=== PATIENT | female | born 1960 | race Caucasian/White ===

== ENCOUNTER 2021-01-06 10:05 | Outpatient (CLI) | payer BC, SELFPAY ==
--- NOTE | ~2021-01-06 | CT_ITS ---
EXAMINATION: CT brain wo con DATE: 01/06/2021 10:23 INDICATION: Headaches. TECHNIQUE: Computed tomography (CT) of the head was performed without intravenous contrast. The mA wa s adjusted according to patient size. Iterative reconstruction technique was employed. The dose-lengt h product was 605.33 mGy-cm. COMPARISON: None FINDINGS: There is no intracranial hemorrhage, acute infarction, or abnormal intracranial mass lesion . The ventricles are normal in size. The orbits are normal. The paranasal sinuses are clear. The mast oid air cells are normal. IMPRESSION: 1. Normal brain. Reviewed, dictated and finalized at location A. IMPRESSION: 1. Normal brain.
== END 2021-01-06 10:06 | disposition home or self-care (01) ==
PROVIDERS: PCP Family Medicine; Visit Provider Physician Assistant
DX: R41.9 Unspecified symptoms and signs involving cognitive functions and awareness (principal); R29.90 Unspecified symptoms and signs involving the nervous system
CPT/HCPCS: 70450

== ENCOUNTER → 2021-03-28 14:28 | Outpatient (CLI) | payer BC, SELFPAY ==
--- NOTE | ~2021-03-28 | XR_ITS ---
EXAMINATION: XR cervical spine 4-5V DATE: 03/28/2021 14:57 INDICATION: Cervical radiculopathy. Neck pain. TECHNIQUE: 4 views of cervical spine were obtained. COMPARISON: None. FINDINGS: There is 4 degrees dextrocurvature of cervical spine. Vertebral body heights are normal. Th ere is moderately decreased disc height at C5-C6. There is multilevel mild facet joint osteoarthritis . There is mild central canal stenosis at C5-C6. No prevertebral soft tissue swelling. IMPRESSION: 1. Moderate spondylosis at C5-C6. Reviewed, dictated and finalized at location A.
--- NOTE | ~2021-03-28 | XR_ITS ---
EXAMINATION: XR lumbar spine 2-3V DATE: 03/28/2021 14:57 INDICATION: Low back pain. TECHNIQUE: 3 views of lumbar spine were obtained. COMPARISON: None. FINDINGS: There is 11 degrees levoscoliosis of lumbar spine. Vertebral body heights are normal. There are changes of posterior fusion procedure at L4-L5 with pedicle screws. There is mildly decreased di sc height at L2-L3, moderately decreased disc height at L3-L4, and mildly decreased disc height at L4 -L5. There are staple lines in the areas of the stomach. There is severe facet joint osteoarthritis i n lower lumbar spine. IMPRESSION: 1. Moderate lumbar spondylosis. 2. Posterior fusion procedure at L4-L5. 3. Lumbar levoscoliosis. Reviewed, dictated and finalized at location A.
== END ==
PROVIDERS: PCP Family Medicine; Visit Provider Pain Medicine Interventional Pain Medicine
DX: M54.12 Radiculopathy, cervical region (principal); M47.16 Other spondylosis with myelopathy, lumbar region; M47.812 Spondylosis without myelopathy or radiculopathy, cervical region; M47.816 Spondylosis without myelopathy or radiculopathy, lumbar region; Z98.1 Arthrodesis status; M41.86 Other forms of scoliosis, lumbar region
CPT/HCPCS: 72050; 72100

== ENCOUNTER → 2021-04-14 09:05 | Outpatient (CLI) | payer BC, SELFPAY ==
--- NOTE | ~2021-04-14 | XR_ITS ---
XR hip BI 2V w AP pelvis DATE: 04/14/2021 09:33 INDICATION: Bilateral hip pain TECHNIQUE: AP pelvis. AP and lateral views of each hip COMPARISON: None FINDINGS: Status post L4 laminectomy and bilateral pedicle screws and rods at L4-5. Moderate diffuse osteopenia. No pelvic fracture or bone destruction. The pubic symphysis and sacroiliac joints are intact. Mild bilateral hip osteoarthritis. No fracture, dislocation, avascular necrosis or bone destruction o f either hip is detected. IMPRESSION: Status post L4 laminectomy and bilateral posterior surgical spinal fusion at L4-5 Moderate osteopenia Mild osteoarthritis at the hip joints Reviewed, dictated and finalized at location B.
== END ==
PROVIDERS: PCP Family Medicine; Visit Provider Family Medicine
DX: M25.551 Pain in right hip (principal); M25.552 Pain in left hip; Z98.1 Arthrodesis status; M85.88 Other specified disorders of bone density and structure, other site; M16.0 Bilateral primary osteoarthritis of hip
CPT/HCPCS: 73521

== ENCOUNTER 2021-06-17 08:30 | Outpatient (RCR) | payer BC, SELFPAY ==
--- NOTE | 2021-05-28 09:37 | PTOPEVAL ---
PHYSICAL THERAPY EVALUATION AND PLAN OF CARE Thank you for referring Karin Donovan to [facility].? The patient is scheduled to be seen for therapy?2x/week for 4 weeks. Please review, sign, date and return this plan of care ARIANNA. I agree with and certify that the following plan of care is medically necessary. Referring Physician Date Attending Provider: Donny Paniagua MD Evaluation Outpatient Past Medical History Musculoskeletal History Hx Other Musculoskeletal Disorders Yes: left femur ORIF Diagnosis bilateral hip and back pain Onset 2019 Subjective Information Karin is here today with Query Text:As Reported By Patient/ back and hip pain. She did Family have L4-5 spinal fusion in 2019 and she states that it went well. Reports shooting pain in her back and down to her right side and hips the moment she steps down in the morning. can only stand for 10 -15minutes and can sit for maybe a little longer. Self Report Pain Assessment Bilateral Back Reported Pain Level 7 Pain Description Aching,Shooting Pain Frequency Chronic,Continuous Pain Score Pain Score 7: Self Report Interventions Used Interventions Used By Clinicians Exercise Pain Relief Interventions Used By Medication Patient Cervical and Lumbar ROM Lumbar ROM Lumbar Flexion Active Knee Query Text:Hands to: Lumbar Extension (0-40) 5 Query Text:Active in Degrees Lateral Rotation Right (0-45) 5 Query Text:Active in Degrees Lateral Rotation Left (0-45) 5 Query Text:Active in Degrees Lower Extremity Range of Motion General Lower Extremity Range of Motion Reason Not Measured WFL/Left,WFL/Right Gross Lower Extremity Range of Motion hip internal rotation is Comments limited bilaterally Cervical and Lumbar Muscle Testing Lumbar Strength Upper Abdominal Strength 3-Fair- Lower Abdominal Strength 3-Fair- Lower Extremity Muscle Strength Testing Hip Strength Bilateral Hip Flexion Strength 3+ Fair + Hip Extension Strength 3 Fair Hip Abduction Strength 3 Fair Knee Strength Bilateral Knee Flexion Strength 3+ Fair + Knee Extension Strength 4- Good - Muscle Length Testing Muscle Length Testing Piriformis w/Hip Flexion >90 Degrees (R) Moderate Tightness,(L) Severe Tightness Left Hamstring Length -30 Query Text:(90 - 90 Position) Right Hamstring Length -30 Query Text:(90 - 90 Position) Right
--- NOTE | 2021-06-17 09:13 | PTOPEVAL ---
PHYSICAL THERAPY DISCHARGE NOTE Thank you for referring Karin Donovan to [facility].? Please review, sign, date and return this plan of care ARIANNA. I agree with and certify that the following plan of care is medically necessary. Referring Physician Date Attending Provider: Donny Paniagua MD Discharge Diagnosis bilateral hip and back pain Onset 2018 Subjective Information Reports that she is stiff this Query Text:As Reported By Patient/ morning. States that therapy Family has been ok - states that each therapy session was ok, but by the time she got to the next session the pain was back to its normal. Self Report Pain Assessment Bilateral Back Reported Pain Level 6 Pain Description Aching,Shooting,Tightness Pain Frequency Chronic,Continuous Pain Score Pain Score 6: Self Report Interventions Used Interventions Used By Clinicians Exercise,Manual Therapy Techniques Pain Relief Interventions Used By Medication Patient Cervical and Lumbar ROM Lumbar ROM Lumbar Flexion Active Knee Query Text:Hands to: Lumbar Extension (0-40) 5 Query Text:Active in Degrees Lateral Rotation Right (0-45) 5 Query Text:Active in Degrees Lateral Rotation Left (0-45) 5 Query Text:Active in Degrees Lower Extremity Muscle Strength Testing Hip Strength Bilateral Hip Flexion Strength 4 Good Hip Extension Strength 3 Fair Hip Abduction Strength 3+ Fair + Knee Strength Bilateral Knee Flexion Strength 4 Good Knee Extension Strength 4 Good Muscle Length Testing Muscle Length Testing Piriformis w/Hip Flexion >90 Degrees (R) Moderate Tightness,(L) Severe Tightness Left Hamstring Length -30 Query Text:(90 - 90 Position) Right Hamstring Length -30 Query Text:(90 - 90 Position) Right Prone Knee Flexor Muscle Length ( 90 degrees) Left Prone Knee Flexor Muscle Length ( 80 degrees) General Exercise General Exercises Side Bilateral Exercise Type Active,Resistive,Stretching Exercise Description - Seated hamstring stretch Query Text:Record Sets, Reps, with nerve flossing Resistance, and Position - Seated piriformis stretch with cues for equal hip alignment -reviewed [facility] Manual Therapy Manual Therapy Side Bilateral Manual Ther
== END 2021-06-17 17:20 | disposition home or self-care (01) ==
LOC: ANHPT 08:30
PROVIDERS: PCP Family Medicine; Visit Provider Pain Medicine Interventional Pain Medicine
DX: M47.817 Spondylosis without myelopathy or radiculopathy, lumbosacral region (principal); M47.816 Spondylosis without myelopathy or radiculopathy, lumbar region; M47.26 Other spondylosis with radiculopathy, lumbar region; M47.27 Other spondylosis with radiculopathy, lumbosacral region; M51.16 Intervertebral disc disorders with radiculopathy, lumbar region; G89.4 Chronic pain syndrome; F41.1 Generalized anxiety disorder; F33.1 Major depressive disorder, recurrent, moderate
CPT/HCPCS: 97110; 97140; 97162

== ENCOUNTER 2021-07-04 13:55 | Outpatient (CLI) | payer BC, SELFPAY ==
--- NOTE | ~2021-07-04 | MR_ITS ---
EXAMINATION: MR lumbar spine wo [facility] EXAM DATE: 07/04/2021 14:38 INDICATION: Radiculopathy, lumbar region. Back pain. TECHNIQUE: Multi-sequential, multiplanar MR images of the lumbar spine were obtained without contrast . Sagittal T1, T2, T2 fat saturation images. Axial T2 weighted images. There is no prior study for comparison. FINDINGS: There is mild lumbar levoscoliosis. There is L4-5 posterior fusion with about 3 mm anteroli sthesis at this level. There is 3 mm retrolisthesis L3 on L4 with moderate disc disease. Mild to mode rate disc disease at the L1-2, L2-3 and L4-5 levels. The conus medullaris terminates at the L2 level and has normal signal intensity and morphology. Small hemangioma within L1. L3 and L4 laminectomies. Evaluation of cauda equina demonstrates nerve root clumping starting at the L3-4 level, probably chrome tanner carmencita arachnoiditis. Level by level evaluation: T12-L1: Disc does not extend beyond the endplate margin. Facet arthropathy: Mild. Neural foraminal stenosis: No stenosis. Central canal stenosis: No stenosis. L1-L2: Disc does not extend beyond the endplate margin. Facet arthropathy: Mild. Neural foraminal stenosis: No stenosis. Central canal stenosis: No stenosis. L2-L3: There is a mild diffuse disc bulge. Facet arthropathy: Mild. Neural foraminal stenosis: Mild to moderate bilateral. Central canal stenosis: Mild. L3-L4: There is a moderate diffuse disc bulge. Facet arthropathy: Moderate to severe right, moderate left. Neural foraminal stenosis: Severe right, moderate to severe left. Central canal stenosis: Posterior decompression. Some right lateral recess stenosis. L4-L5: There is a mild diffuse disc bulge. Facet arthropathy: Poorly visualized but could be partially fused. Neural foraminal stenosis: Mild bilateral. Central canal stenosis: Posterior decompression. L5-S1: There is a minimal diffuse disc bulge. Facet arthropathy: Mild to moderate. Neural foraminal stenosis: Mild bilateral. Central canal stenosis: No stenosis. IMPRESSION: 1. Lower lumbar nerve root clumping likely chronic arachnoiditis. 2. L3-4 grade 1 retrolisthesis, severe right, moderate to severe left neural foraminal stenosis. 3. Surgical changes including L4-5 posterior fusion, L3 and L4 laminectomies. Reviewed, dictated and finalized at location A. IMPRESSION: 1. Lower lumbar nerve root clumping likely chronic arachnoiditis. 2. L3-4 grade 1 retrolisthesis, severe right, moderate to severe left neural f oraminal stenosis. 3. Surgical changes including L4-5 posterior fusion, L3 and L4 laminectomies.
== END 2021-07-04 13:56 | disposition home or self-care (01) ==
LOC: ANHIMG 13:58
PROVIDERS: PCP Family Medicine; Visit Provider Pain Medicine Interventional Pain Medicine
DX: M54.17 Radiculopathy, lumbosacral region (principal); M43.16 Spondylolisthesis, lumbar region; M48.061 Spinal stenosis, lumbar region without neurogenic claudication; Z98.1 Arthrodesis status
CPT/HCPCS: 72148

== ENCOUNTER 2022-04-16 13:25 | Outpatient (CLI) | payer MEDICARE, SELFPAY ==
--- NOTE | ~2022-04-16 | XR_ITS ---
XR ankle RT min 3V DATE: 04/16/2022 13:54 INDICATION: Ankle injury TECHNIQUE: 4 views COMPARISON: None FINDINGS: Prominent plantar and very prominent posterior calcaneal enthesopathy. No erosive change or periostitis is noted. Mild lateral soft tissue swelling of the ankle. No fracture or dislocation of the ankle or disruption of the ankle mortise is detected. No periosteal reaction or bone destruction is detected. IMPRESSION: Mild lateral ankle soft tissue swelling; no fracture or dislocation Prominent plantar and very prominent posterior calcaneal enthesopathy Reviewed, dictated and finalized at location A.
--- NOTE | 2022-04-16 14:01 | ECG_ITS ---
Measurements Intervals [place] Rate: 76 P: 74 CO: 173 QRS: 40 QRSD: 93 T: 32 QT: 396 QTc: 446 Interpretive Statements SINUS RHYTHM NORMAL ECG Electronically Signed On 04-16-2022 14:12:50 CDT by Leo Lyon D.O.
== END 2022-04-16 13:26 | disposition home or self-care (01) ==
LOC: ANHIMG 13:28
PROVIDERS: PCP Family Medicine; Visit Provider Physician Assistant
DX: S99.919A Unspecified injury of unspecified ankle, initial encounter (principal); R55 Syncope and collapse; M79.89 Other specified soft tissue disorders; M77.31 Calcaneal spur, right foot
CPT/HCPCS: 73610; 93005

== ENCOUNTER 2024-02-01 08:16 | Outpatient (CLI) | payer MEDICARE, SELFPAY ==
[2024-02-01 08:42] LABS: Alanine Aminotransferase 38 U/L (6-35); Albumin Level 4.1 g/dL (3.5-5.1); Alkaline Phosphatase 83 U/L (38-126); Anion Gap 3 mmol/L (4-12); Aspartate Amino Transferase 38 U/L (14-36); Bilirubin,Total 0.3 mg/dL (0.2-1.3); Blood Urea Nitrogen 13 mg/dL (7-17); Calcium 8.9 mg/dL (8.4-10.2); Carbon Dioxide 27 mmol/L (22-30); Chloride 107 mmol/L (98-107); Estimated Glomerular Filt Rate > 60; Glucose 78 mg/dL (65-110); Potassium 4.7 mmol/L (3.4-5.0); Sodium 137 mmol/L (137-145)
[2024-02-01 23:35] LABS: Free T4 Free Thyroxine Reflex 0.73 ng/dL (0.78-2.19)
== END 2024-02-01 08:17 | disposition home or self-care (01) ==
PROVIDERS: Visit Provider Family Medicine
DX: E03.9 Hypothyroidism, unspecified (principal); R74.8 Abnormal levels of other serum enzymes; R53.83 Other fatigue
CPT/HCPCS: 36415; 80053; 84439; 84443

== ENCOUNTER 2024-04-07 14:11 | Emergency (ER) | payer OTHER, MEDICARE, SELFPAY ==
--- NOTE | ~2024-04-07 | XR_ITS ---
EXAMINATION: XR ribs RT 2V DATE: 04/07/2024 16:12 INDICATION: Posterior right rib pain TECHNIQUE: 3 views of the right ribs were obtained. COMPARISON: Chest radiograph dated 02/11/2007 FINDINGS: Subtle contour irregularity to the anteriormost right 9th rib equivocal for age indeterminate fractur e. No other lesions suspicious for fracture identified. Visualized portion of the lungs are clear wit h no pleural effusion or pneumothorax. Heart size is normal. Postoperative changes in the epigastric region. Moderate thoracic and upper lumbar spondylosis. Partially visualized bilateral vertical constanza a nd pedicle screw fixation for posterior spinal fusion with pedicle screws at L4 and vertical rods ext ending caudally beyond the inferior margin of the [id number]. Status post distal right clavicle ex cision. IMPRESSION: 1. Single chondral irregularity to the anteriormost right ninth rib which could represent an age-inde terminate fracture. Correlate for point tenderness at this location. No other rib fractures identifie d. 2. No evident acute cardiopulmonary disease with portions of the lateral left lung are excluded from the [id number]. Reviewed, dictated and finalized at location B. IMPRESSION: 1. Single chondral irregularity to the anteriormost right ninth rib which could represent an age-indeterminate fracture. Correlate for point tenderness at thi s location. No other rib fractures identified. 2. No evident acute cardiopulmonary disease with portions of the lateral left l sixto are excluded from the [id number].
--- NOTE | ~2024-04-07 | XR_ITS ---
EXAMINATION: XR hip RT min 2V DATE: 04/07/2024 16:12 INDICATION: Right hip pain. TECHNIQUE: 2 views of right hip were obtained. COMPARISON: Hip radiographs 04/14/2021 FINDINGS: Bone alignment is normal. No fracture. There is mild right hip osteoarthritis. There are ch anges of posterior fusion procedure in lumbar spine. IMPRESSION: 1. Mild right hip osteoarthritis. Reviewed, dictated and finalized at location A.
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
[2024-04-07 14:32] VITALS: BP 100/64; PULSE 82; RESP 16; TEMP 36.4; O2SAT 100
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
== END 2024-04-07 17:07 | disposition home or self-care (01) ==
LOC: ANHED 16:52
PROVIDERS: Emergency Provider Nurse Practitioner Family; PCP Family Medicine
DX: R07.81 Pleurodynia (principal); M47.816 Spondylosis without myelopathy or radiculopathy, lumbar region; M16.11 Unilateral primary osteoarthritis, right hip; E78.5 Hyperlipidemia, unspecified; E03.9 Hypothyroidism, unspecified; E55.9 Vitamin D deficiency, unspecified; K21.9 Gastro-esophageal reflux disease without esophagitis; F32.A Depression, unspecified; Z98.1 Arthrodesis status; Z98.84 Bariatric surgery status; Z86.73 Personal history of transient ischemic attack (TIA), and cerebral infarction without residual deficits; Z90.710 Acquired absence of both cervix and uterus; Z79.899 Other long term (current) drug therapy; V47.5XXA Car driver injured in collision with fixed or stationary object in traffic accident, initial encounter
CPT/HCPCS: 71100; 72100; 73502; 99284

== ENCOUNTER 2024-09-18 14:57 | Outpatient (CLI) | payer OTHER, SELFPAY ==
--- NOTE | 2024-09-18 15:07 | ECHO_ITS ---
Patient Info Name: Karin Donovan Age: 63 years : 1960 Gender: Female Ht: 63 in Wt: 160 lbs BSA: 1.82 m2 HR: 74 bpm BP: 111 / 90 mmHg Heart Rhythm: Sinus Rhythm Technical Quality: Good Exam Date: 09/18/2024 3:11 PM Exam Location: Echo Lab Patient Status: Outpatient Admit Date: 09/18/2024 Staff Ordering Physician: Lelo Escalante PA-C [employer] Machine Operator: Lillian Fields RDCS Attending Provider: Lelo Escalante PA-C Referring Physician: Boris VILLAFANA; Exam Type: CA echo doppler w bubble study Study Info Indications G45.9 - Transient cerebral ischemic attack, unspecified Complete two-dimensional, color flow and Doppler transthoracic echocardiogram is performed with agitated saline. Contrast/Agitated Saline Contrast/Ag. Saline: Agitated Saline Amount: 20.00 ml New IV Access: Left Site Condition: IV removed Summary 1. Left ventricular chamber dimension is normal. 2. Left ventricular systolic function is normal, estimated at 60-65%. 3. The left ventricular diastolic function is grade I diastolic dysfunction. 4. E/e' 9 is minimally elevated. 5. There is trace tricuspid valve regurgitation. 6. There is trace pulmonic regurgitation. Left Ventricle E/e' 9 is minimally elevated. Left ventricular chamber dimension is normal. Left ventricular systolic function is normal, estimated at 60-65%. The left ventricular diastolic function is grade I diastolic dysfunction. Right Ventricle Right ventricular systolic function is normal and with normal TAPSE 2.1 cm. Right ventricular chamber dimension is normal. Left Atria Left atrial chamber dimension is normal. Right Atria Right atrial chamber dimension is normal. Atrial Septum Agitated saline injection with and without valsalva maneuver opacified right side cardiac chambers without shunt to left side cardiac chambers. Intact interatrial septum visualized by 2D and agitated saline imaging. Aortic Valve The aortic valve is trileaflet. There is no aortic valve stenosis. There is no aortic valve regurgitation. Pulmonic Valve There is trace pulmonic regurgitation. Mitral Valve There is no mitral valve stenosis. There is no mitral valve regurgitation. Tricuspid Valve There is trace tricuspid valve regurgitation. RVSP is not measured due to inadequate TR jet. Pericardium/Pleural There is no pericardial effusion. Inferior Vena Cava Normal inferior vena cava with >50% collapse upon inspiration consistent with normal right atrial pressure, 5 mmHg. Aorta The aortic root size at the sinus of Valsalva is normal. Left Ventricular Outflow Tract Name Value Normal LVOT 2D LVOT Diameter 2.0 cm LVOT Doppler LVOT Peak Gradient 2 mmHg LVOT Mean Gradient 1 mmHg LVOT VTI 15 cm LVOT VTI/AV VTI Ratio 0.9 LVOT Stroke Volume 47 ml LVOT CO 3.3 l/min LVOT CI 1.8 l/min/m2 Pulmonic Valve Name Value Normal RVOT Doppler RVOT Peak Gradient 3 mmHg PV Doppler PV Peak Gradient 3 mmHg Mitral Valve Name Value Normal MV Doppler MV Decel Frio 161 cm/s2 MV PHT 92 ms MV Area (PHT) 2.4 cm2 4.0-5.0 MV Diastolic Function MV E Peak Velocity 51 cm/s MV A Peak Velocity 66 cm/s MV E/A 0.8 MV Decel Time 317 ms MV Annular TDI MV E/e' (Septal) 12.0 <=8.0 MV E/e' (Lateral) 8.1 <=8.0 MV E/e' (Average) 10.0 Tricuspid Valve Name Value Normal Estimated PAP/RSVP RA Pressure 5 mmHg <=5 Aorta Name Value Normal Ascending Aorta Ao Root Diameter (MM) 3.1 cm Ao Root Diam Index (MM) 1.7 cm/m2 Aortic Valve Name Value Normal AV Doppler AV Peak Velocity 107 cm/s AV Peak Gradient 5 mmHg AV Mean Gradient 2 mmHg AV VTI 17 cm AV Area (Cont Eq VTI) 2.7 cm2 >=3.0 AV Area (Cont Eq Surya) 2.3 cm2 AV Regurgitation 2D LVOT Area 3.2 cm2 Ventricles Name Value Normal LV Dimensions 2D/MM IVS Diastolic Thickness (2D) 0.9 cm 0.6-1.0 LVID Diastole (2D) 4.1 cm 3.8-5.2 LVIW Diastolic Thickness (2D) 0.9 cm 0.6-0.9 LVID Systole (2D) 2.7 cm 2.2-3.5 LVOT Diameter 2.0 cm LV Mass (2D Cubed) 111.45 g 67.00-162.00 LV Mass Index (2D Cubed) 61 g/m2 43-95 Relative Wall Thickness (2D) 0.42 LV Fractional Shortening/Ejection Fraction 2D/MM LV Fractional Shortening (2D) 35 % 27-45 LV EF (2D Teicholz) 65 % 54-74 LV Diastolic Volume (4C MOD) 44 ml LV EF (4C MOD) 73 % LV Diastolic Volume (2C MOD) 35 ml LV EF (2C MOD) 70 % LV Diastolic Volume (BP MOD) 40 ml 46-106 LV Diastolic Volume Index (BP MOD) 22 ml/m2 29-61 LV Systolic Volume (BP MOD) 11 ml 14-42 LV Systolic Volume Index (BP MOD) 6 ml/m2 8-24 LV EF (BP MOD) 72 % 54-74 LV Diastolic Length (4C) 6.6 cm LV Systolic Length (4C) 5.8 cm LV Stroke Volume (4C MOD) 32 ml Atria Name Value Normal LA Dimensions LA Dimension (MM) 3.9 cm 2.7-3.8 LA Volume (4C A-L) 35 ml LA Volume (BP A-L) 36 ml RA Dimensions RA Area (4C) 12.7 cm2 <=18.0 Report Signatures
== END 2024-09-18 14:58 | disposition home or self-care (01) ==
LOC: ANHCARD 15:01
PROVIDERS: PCP Family Medicine; Visit Provider Student in an Organized Health Care Education/Training Program
DX: G45.9 Transient cerebral ischemic attack, unspecified (principal)
CPT/HCPCS: 93306; 96375

== ENCOUNTER 2025-02-16 10:23 | Outpatient (CLI) | payer OTHER, SELFPAY ==
--- NOTE | ~2025-02-16 | XR_ITS ---
Thoracic spine: Clinical Indication: Radiculopathy AP and lateral views were performed. No fracture is seen. There is normal alignment of the vertebrae. There is mild degenerative disc paolo rowing throughout the thoracic spine. Paravertebral soft tissues appear normal. Impression: Mild degenerative spondylosis. Reviewed, dictated and finalized at [facility]. Impression: Mild degenerative spondylosis.
--- NOTE | ~2025-02-16 | XR_ITS ---
Lumbosacral Spine: AP and lateral views Clinical History: Pain COMPARISON: 04/07/2024 Findings: Stable posterior fixation hardware from L4 to L5. Stable minimal grade 1 anterolisthesis of L3 over L4. There is moderate to advanced degenerative tearing at L2-L3 and L3-L4. There is extensiv e facet arthropathy. The sacroiliac joints are normally outlined. Impression: Stable posterior fixation from L4 to L5. Stable degenerative changes compared to prior exam. Reviewed, dictated and finalized at location . Impression: Stable posterior fixation from L4 to L5. Stable degenerative changes compared to prior exam.
== END 2025-02-16 10:24 | disposition home or self-care (01) ==
LOC: MICIMG 10:25
PROVIDERS: PCP Family Medicine; Visit Provider Pain Medicine Interventional Pain Medicine
DX: M47.814 Spondylosis without myelopathy or radiculopathy, thoracic region (principal); M47.816 Spondylosis without myelopathy or radiculopathy, lumbar region; Z96.698 Presence of other orthopedic joint implants
CPT/HCPCS: 72072; 72100

== ENCOUNTER 2025-05-04 05:47 | Emergency (ER) | payer OTHER, SELFPAY ==
--- NOTE | ~2025-05-04 | XR_ITS ---
XR ankle LT min 3V 05/04/2025 06:44 INDICATION: Left ankle pain after fall PROCEDURE: 4 views left ankle COMPARISON: No prior studies for comparison. FINDINGS: Fracture, dislocation or subluxation is not identified. The soft tissues appear within norm al limits. No foreign bodies are identified. IMPRESSION: 1: NO ACUTE BONE OR JOINT ABNORMALITY IDENTIFIED. Reviewed, dictated and finalized at location B.
--- NOTE | ~2025-05-04 | XR_ITS ---
XR ankle RT min 3V 05/04/2025 06:44 Indication: Right ankle pain after fall Procedure: 4 views right ankle Comparison: 04/16/2022 Findings: No fracture, subluxation or dislocation. Prominent degenerative calcaneal enthesophytes. An kle mortise intact. Osteopenia. Talar dome is normal. Impression: 1: No acute fracture. Reviewed, dictated and finalized at location B. Impression: 1: No acute fracture.
--- NOTE | ~2025-05-04 | XR_ITS ---
XR pelvis 1-2V 05/04/2025 06:44 Indication: Hip pain after fall Procedure: AP pelvis Comparison: No prior studies for comparison. Findings: Mild osteoarthritis of the hips. Pelvic rings intact. Mild osteoarthritis of the hips. Sacr al foramen are symmetric. No acute fracture or traumatic malalignment. Impression: 1: No acute fracture. Reviewed, dictated and finalized at location B. Impression: 1: No acute fracture.
--- NOTE | ~2025-05-04 | XR_ITS ---
XR knee RT 3V 05/04/2025 06:44 Indication: Right knee pain Procedure: 3 views right knee Comparison: 03/21/2025 Findings: No acute fracture, subluxation or dislocation. There is mild tricompartment osteoarthritis. No joint effusion. No foreign bodies. Osteopenia. Impression: 1: No acute fracture. Reviewed, dictated and finalized at location B. Impression: 1: No acute fracture.
--- NOTE | ~2025-05-04 | XR_ITS ---
XR knee LT 3V 05/04/2025 06:44 Indication: Left knee pain after fall Procedure: 3 views left knee Comparison: 10/25/2024 Findings: Moderate osteoarthritis of the left knee. Osteopenia. Small joint effusion. No fracture, anguiano bluxation or dislocation. Impression: 1: No acute fracture. Reviewed, dictated and finalized at location B. Impression: 1: No acute fracture.
--- OUTSIDE RECORDS SUMMARY | 2025-05-04 05:48 | XMS_ITS | Referral Summary ---
Author Organization [facility] Address [address] [place] [id number] Care Team Providers Care Psychiatric Nursing Aide Name Role Phone Candace Nicole MD Primary Care Provider [phone] Allergies Active Allergy Reactions Criticality Noted Date Comments Adhesive Hives Medium 02/23/2020 Aspirin Stomach upset Low 09/16/2011 Latex Hives Medium 06/30/2022 Penicillins Hives Medium 02/23/2020 Medications levothyroxine (SYNTHROID) 137 mcg tablet Take 1 tablet (137 mcg total) by mouth every other day 2 Active levothyroxine (SYNTHROID) 125 mcg tablet Take by mouth daily 8 Active HYDROcodone-ac etaminophen (NORCO) 5-325 mg per tablet HYDROCODONE-ACETAM INOPHEN TABLET 8 Active carisoprodoL (SOMA) 350 mg tablet carisoprodol 350 mg tablet TAKE 1 TABLET BY MOUTH THREE TIMES A DAY NEEDED FOR MUSCLE SPASMS Active atorvastatin (LIPITOR) 10 mg tablet Take 1 tablet (10 mg total) by mouth daily 2 Active busPIRone (BUSPAR) 15 mg tablet buspirone 15 mg tablet TAKE ONE TABLET 3 TIMES DAILY NEEDED FOR ANXIETY 9 Active cholecalcifero l (Dialyvite Vitamin D3 Max) 07512 unit tablet Take by mouth 8 Active cholestyramine (QUESTRAN) 4 gram powder PLEASE SEE ATTACHED FOR DETAILED DIRECTIONS 2 Active clopidogreL (PLAVIX) 75 mg tablet Take 1 tablet (75 mg total) by mouth daily 2 Active cyanocobalamin (Vitamin B-12) 1,000 mcg/mL injection Apply topically 8 Active ergocalciferol (VITAMIN D) 50,000 unit capsule ergocalciferol (vitamin D2) 1,250 mcg (50,000 unit) capsule TAKE 1 CAPSULE BY MOUTH WEEKLY Active traZODone (DESYREL) 150 mg tablet Take 1 tablet (150 mg total) by mouth nightly 2 Active traMADoL (ULTRAM) 50 mg tablet TAKE 2 TABLETS BY MOUTH EVERY 6 TO 8 HOURS NEEDED 2 Active simvastatin (ZOCOR) 20 mg tablet daily Active venlafaxine XR (EFFEXOR-XR) 150 mg 24 hr capsule Take 1 capsule (150 mg total) by mouth daily 2 Active gabapentin (NEURONTIN) 400 mg capsule Take 1 capsule (400 mg total) by mouth 2 (two) times a day as needed 2 Active famotidine (PEPCID) 40 mg tablet Take 1 tablet (40 mg total) by mouth daily 2 Active TiZANidine (ZANAFLEX) 4 mg capsule tizanidine 4 mg capsule TAKE 1 CAPSULE BY MOUTH THREE TIMES A DAY NEEDED FOR PAIN Active valACYclovir (VALTREX) 1 gram tablet TAKE 2 TABLETS BY MOUTH EVERY 12 HOURS NEEDED FOR COLD SORES 2 Active Active Problems No known active problems Social History Tobacco Use Types Packs/Day Years Used Date Smoking Tobacco: Never Smokeless Tobacco: Never Tobacco Cessation:Counseling Given: Not Answered Comments No Sex and Gender Information Value Date Recorded Sex Assigned at Not on file Legal Sex Female 3:25 AM ETHICS OFFICER Gender Identity Not on file Sexual Orientation Not on file Last Filed Vital Signs Vital Sign Reading Time Taken Comments Blood Pressure 106/70 08/20/2022 10:40 AM ETHICS OFFICER Pulse 55 08/20/2022 10:40 AM ETHICS OFFICER Temperature 37.1 C (98.7 F) 02/23/2020 6:29 PM CDT Respiratory Rate 16 08/20/2022 10:40 AM ETHICS OFFICER Oxygen Saturation 97% 08/20/2022 10:40 AM ETHICS OFFICER Inhaled Oxygen Concentration - - Weight 72 kg (158 lb 11.7 oz) 08/20/2022 10:40 A M ETHICS OFFICER Height 160 cm (5' 3) 08/20/2022 10:40 AM ETHICS OFFICER Body Mass Index 28.12 08/20/2022 10:40 AM ETHICS OFFICER Plan of Treatment Not on file Insurance [employer] [id number] [place] [address] MDCR HMO [facility]F [facility] Care Teams Psychiatric Nursing Aide Relationship Specialty Start Date End Date Candace Nicole MD PCP - General 02/23/20
--- OUTSIDE RECORDS SUMMARY | 2025-05-04 05:48 | XMS_ITS | Clinical Summary ---
Author Organization [facility] Address [address] [place] [address] Care Team Providers Care Intelligence Specialist Name Role Phone Candace Nicole MD Primary Care Provider [phone] Source Comments [facility],non-owned Affiliates and Associated Physician Practices is amultiple site organization consisting of ambulatory clinics and hospital sitesin [place], [place], [place] and [place]. This disclosure is being madepursuant to the Care Everywhere program and may not contain all information available regarding this patient. Last updated 18.[facility] Allergies Active Allergy Reactions Criticality Noted Date Comments Aspirin 09/16/2011 Penicillins 09/16/2011 Medications * Be aware that medications may not be up to date on this document. Alwaysverify current medications with the patient. estradiol (ESTRACE) 2 MG tablet once daily. Active levothyroxine (SYNTHROID) 88 MCG tablet once daily. Active simvastatin (ZOCOR) 20 MG tablet once daily. Active hydrocodone-acet aminophen (NORCO) 7.5-325 MG tablet every 6 hours as needed. Active carisoprodol (SOMA) 350 MG tablet once daily. Active FLUoxetine (PROZAC) 40 MG capsule once daily. Active Omeprazole Magnesium (PRILOSEC OTC PO) once daily. Active VOLTAREN 1 % gel APPLY 4 GRAMS TO AFFECTED AREA FOUR TIMES DAILY 500 g 3 5 Active azithromycin (ZITHROMAX) 250 MG tabletIndication s:Acute suppurative otitis media of both ears without spontaneous rupture of tympanic membranes, recurrence not specified Take 2 tablets now, then 1 tablet daily for 4 days. 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 Not on file Not on file Not on file Last Filed Vital Signs Vital Sign Reading Time Taken Comments Blood Pressure 110/68 10/15/2016 3:04 PM IRS AGENT Pulse 107 10/15/2016 3:04 PM IRS AGENT Temperature 36.7 C (98.1 F) 10/15/2016 3:04 PM IRS AGENT Respiratory Rate 16 10/15/2016 3:04 PM IRS AGENT Oxygen Saturation 96% 10/15/2016 3:04 PM IRS AGENT Inhaled Oxygen Concentration - - Weight 65.8 kg (145 lb) 10/15/2016 3:04 PM IRS AGENT Height 162.6 cm (5' 4) 10/15/2016 3:04 PM IRS AGENT Body Mass Index 24.89 10/15/2016 3:04 PM IRS AGENT Plan of Treatment Health Maintenance Due Date Last Done Comments BONE DENSITY TESTING 1960 COLOGUARD (AGES 45-75) - COL ON CA SCREENING 1958 COLON MONITORING 1958 COLONOSCOPY - COLON CA SCREENING 1958 CT COLONOGRAPHY - COLON CA SCREENING 1958 Colorectal Cancer Screening 1958 FIT - COLON CA SCREENING 1958 FLEX SIG - COLON CA SCREENING 1958 MAMMOGRAM 1958 HEPATITIS C SCREENING 09/30/1976 DTAP/TDAP/TD VACCINES (1 - Tdap) 1977 PNEUMOCOCCAL VACCINE 50+ (1 of 1 - PCV) 2008 ZOSTER VACCINE (1 of 2) 2008 COVID-19 VACCINE ( - 2023-2 5 season) 2024 DEPRESSION SCREENING 10/04/2024 INFLUENZA VACCINE (#1) 2025 Respiratory Syncytial Virus (RSV) Vaccine Pt: or over 60 yrs (1 - 1-dose 75+ series) 2033 HEPATITIS B VACCINE Aged Out No longe r eligible based on patient's age to complete this topic HIB VACCINE Aged Out No longer eligi ble based on patient's age to complete this topic HPV VACCINE Aged Out No longer eligi ble based on patient's age to complete this topic MENINGOCOCCAL (Group B) VACC INE SHARED DECISION-MAKING Aged Out No longer eligibl e based on patient's age to complete this topic MENINGOCOCCAL GROUPS A/C/Y/W VACCINE Aged Out No longer eligible b ased on patient's age to complete this topic Insurance [employer] Care Teams Intelligence Specialist Relationship Specialty Start Date End Date Candace Nicole MD [address] [place] [address] PCP - General Family Medicine 10/15/16
--- OUTSIDE RECORDS SUMMARY | 2025-05-04 05:49 | XMS_ITS | Clinical Summary ---
Author Organization [facility] Address [address] [place] [id number] Care Team Providers Care Rejoiner Name Role Phone Candace Nicole MD Primary Care Provider [phone] Allergies Active Allergy Reactions Criticality Noted Date [...] Active cholecalcifero l (Dialyvite Vitamin D3 Max) 10258 unit tablet Take by mouth 8 Active [...] Active Active Problems No known active problems Medical History Medical History Date Comments Heart attack (HCC) Anxiety Family History Medical History Relation Name Comments Stroke Brother Hypertension Father Stroke Mother Cervical cancer Sister Relation Name Status Comments Brother Father Mother Sister Social History Tobacco Use Types Packs/Day Years Used Date Smoking Tobacco: Never Smokeless Tobacco: Never Tobacco Cessation:Counseling Given: Not Answered Comments No Sex and Gender Information Value Date Recorded Sex Assigned at Not on file Legal Sex Female 3:25 AM CIVIL PREPAREDNESS OFFICER Gender Identity Not on file Sexual Orientation Not on file Obstetrics History Last Filed Vital Signs Vital Sign Reading Time Taken Comments Blood Pressure 106/70 08/20/2022 10:40 AM CIVIL PREPAREDNESS OFFICER Pulse 55 08/20/2022 10:40 AM CIVIL PREPAREDNESS OFFICER Temperature 37.1 C (98.7 F) 02/23/2020 6:29 PM CDT Respiratory Rate 16 08/20/2022 10:40 AM CIVIL PREPAREDNESS OFFICER Oxygen Saturation 97% 08/20/2022 10:40 AM CIVIL PREPAREDNESS OFFICER Inhaled Oxygen Concentration - - Weight 72 kg (158 lb 11.7 oz) 08/20/2022 10:40 A M CIVIL PREPAREDNESS OFFICER Height 160 cm (5' 3) 08/20/2022 10:40 AM CIVIL PREPAREDNESS OFFICER Body Mass Index 28.12 08/20/2022 10:40 AM CIVIL PREPAREDNESS OFFICER Plan of Treatment Health Maintenance Due Date Last Done Comments Breast Cancer Screening-Mammogram 1960 Colon Cancer Screening-Colonoscopy 1958 Depression Screening 1958 Fall Risk Assessment 1958 Hepatitis C Screening 1958 Osteoporosis Screening-Bone Density Scan 1958 DTaP/Tdap/Td Vaccine (1 - Tdap) 1969 Hepatitis B Screening 1976 Zoster Vaccine (1 of 2) 2008 Well Visit 65+ 2023 Covid-19 Vaccine ( season) 2024 07/23/2021, 01/06/2021, 12/16/2020 Influenza Vaccine (#1) 2025 07/23/2021 Pneumococcal vaccine 65+ Completed 03/26/2022 Insurance [employer] [facility] MDCR HMO REF [facility] MDCR HMO REF Care Teams Rejoiner Relationship Specialty Start Date End Date Candace Nicole MD PCP - General 02/23/20
--- OUTSIDE RECORDS SUMMARY | 2025-05-04 05:49 | XMS_ITS | Clinical Summary ---
Author Organization [facility] Address [address] [place] [id number] Care Team Providers Care Equestrian Trainer Name Role Phone Unavailable Primary Care Provider Unavailabl e Social History Tobacco Use Types Packs/Day Years Used Date Smoking Tobacco: Never Assessed Comments Unknown Sex and Gender Information Value Date Recorded Sex Assigned at Not on file Legal Sex Female 7:59 PM CDT Gender Identity Not on file Sexual Orientation Not on file Last Filed Vital Signs Vital Sign Reading Time Taken Comments Blood Pressure 170/118 10/06/2012 4:08 PM MEDICAL INTERN Pulse 77 10/06/2012 4:08 PM MEDICAL INTERN Temperature - - Respiratory Rate - - Oxygen Saturation - - Inhaled Oxygen Concentration - - Weight 64.4 kg (142 lb) 10/06/2012 3:44 PM MEDICAL INTERN Height 160 cm (5' 3) 10/06/2012 3:44 PM MEDICAL INTERN Body Mass Index 25.15 10/06/2012 3:44 PM MEDICAL INTERN Plan of Treatment Health Maintenance Due Date Last Done Comments Colorectal Cancer Screening Colonoscopy (10 Years) 1958 Hepatitis C 1976 DTaP, Tdap and Td Vaccines ( 1 - Tdap) 1977 Mammogram Screening 1998 Pneumococcal Vaccine: 50+ Ye ars (1 of 1 - PCV) 2008 Zoster Vaccines (1 of 2) 2008 Dexa Scan (General) 2023 COVID-19 Vaccine ( - 2023-2 5 season) 2024 RSV Immunization or 60+ Years (1 - 1-dose 75+ series) 2033 Meningococcal B Vaccine Aged Out No l onger eligible based on patient's age to complete this topic Meningococcal Vaccine Aged Out No feliciano valarie eligible based on patient's age to complete this topic RSV Immunizations Under 20 Months Aged Out No longer eligible based on patient's age to complete this topic
[2025-05-04 05:51] VITALS: BP 123/79; PULSE 69; RESP 17; TEMP 36.6; O2SAT 96
--- NOTE | 2025-05-04 06:16 | ED_ITS ---
HPI - General Adult General Chief complaint: Fall <Ronald Bah MD - Last Filed: 05/04/25 06:21> Stated complaint: fall, leg pain <Ronald Bah MD - Last Filed: 05/04/25 06:21> Time Seen by Provider: 05/04/25 06:00 <Ronald Bah MD - Last Filed: 05/04/25 06:21> History of Present Illness HPI narrative: This is a 64-year-old female presenting after ground level fall. Last night at 10:00 p.m. she has region for her door knob and missed. She then fell to the ground. She had pain in her bilateral hips knees and ankles. She did not feel like coming to the hospital so she went to bed. She woke up with more pain that she says is everywhere below her hips. She has taken her home Vine[place] which he takes for chronic pain with some relief. She denies any head trauma. No chest pain difficulty breathing abdominal pain. No syncope or prodrome before the fall. <Ronald Bah MD - Last Filed: 05/04/25 06:21> Related Data Home medications: Home Medications ?Medication ?Instructions ?Recorded ?Confirmed ?Last Taken ?Type oxycodone-acetaminophen 5 mg-325 1 tablet PO Q6H PRN pain 08/10/23 04/27/25 Unknown History mg tablet <Ronald Bah MD - Last Filed: 05/04/25 06:21> Allergies/adverse reactions: Allergies Allergy/AdvReac Type Severity Reaction Status Date / Time aspirin Allergy Unknown Unknown Verified 04/27/25 11:45 Penicillins Allergy Unknown Unknown Verified 04/27/25 11:45 <Ronald Bah MD - Last Filed: 05/04/25 06:21> [facility] Past Medical History Medical History: Medical History Cobalamin deficiency Vitamin D deficiency Gastroesophageal reflux TIA (transient ischemic attack) Spinal stenosis of lumbar region with radiculopathy Elevated liver enzymes Chronic low back pain Depression HLD (hyperlipidemia) Hypothyroidism <Ronald Bah MD - Last Filed: 05/04/25 06:21> Surgical History Surgical History: Surgical History History of hip surgery H/O total hysterectomy H/O gastric bypass History of lumbar spinal fusion Hx of laminectomy <Ronald Bah MD - Last Filed: 05/04/25 06:21> Family History Family History: Family History Mother Family history of rheumatoid arthritis Cerebrovascular accident Father Family history of liver disease Family history of coronary artery disease Sibling Cerebrovascular accident <Ronald Bah MD - Last Filed: 05/04/25 06:21> Social History Social History: Social History Smoking status: Never smoker Second hand tobacco smoke exposure: No Alcohol intake: former Alcohol use details: hasn't drank in 4 years Substance use: never Substance use type: does not use Do You Feel Safe in your Home?: Yes Lack of Transportation: No Lack of Food: Sometimes True Current Housing: I Have Housing Concerned About Future Housing: No Difficulty Paying Gas/Electric Bills: YES Difficulty Paying for Meds: No Currently Unemployed: No Education: High School Diploma/GED Difficulty w/ Childcare or Family Care: No Living arrangements: with family Occupation/Education: occupation Gender identity (if verbalized by the patient): Female Sexual Orientation (if Verbalized by the Patient): Straight or Heterosexual Spiritual care concerns: No Agree to blood products: Yes <Ronald Bah MD - Last Filed: 05/04/25 06:21> Exam Narrative: APPEARANCE: No apparent distress. Head: atraumatic. EYES: EOMI, NOSE: Atraumatic NECK: Trachea midline RESPIRATORY: No increased rate of breathing CARDIOVASCULAR: RRR, ABDOMINAL: Non-distended MUSCULOSKELETAl: Focal exam of the lower extremities revealed no shortening or rotation. No pain on internal or external rotation of the hips bilaterally. Some pain on flexion and extension of the knees bilaterally. No pain in the ankles. No significant swelling or deformity. No bruising. Legs are neurovascularly intact. NEURO: Alert. Moving 4/4 extremities SKIN:: Warm, dry. Normal color PSYCHIATRIC: Normal affect <Ronald Bah MD - Last Filed: 05/04/25 06:21> Course Course Emergency Course: Patient care was signed out to me by the overnight physician with imaging pending. Patient had negative x-rays of pelvis bilateral knees and bilateral ankles. No acute fractures or dislocations were noted. Patient was updated results of workup and patient was well-appearing at time of re-evaluation. All patient's questions and concerns were addressed. Patient was encouraged of close follow-up with primary care physician. <Magdaleno Cornell MD - Last Filed: 05/04/25 17:58> Vital Signs Vital signs: Vital Signs Temperature 97.8 F 05/04/25 05:51 Pulse Rate 69 05/04/25 05:51 Respiratory Rate 17 05/04/25 05:51 Blood Pressure 123/79 05/04/25 05:51 Pulse Oximetry 96 05/04/25 05:51 Oxygen Delivery Room Air 05/04/25 05:51 Temperature 97.8 F 05/04/25 05:51 Pulse Rate 65 05/04/25 09:15 Respiratory Rate 16 05/04/25 09:15 Blood Pressure 107/74 05/04/25 09:15 Pulse Oximetry 95 05/04/25 09:15 Oxygen Delivery Room Air 05/04/25 05:51 <Ronald Bah MD - Last Filed: 05/04/25 06:21> Vital Signs Temperature 97.8 F 05/04/25 05:51 Pulse Rate 69 05/04/25 05:51 Respiratory Rate 17 05/04/25 05:51 Blood Pressure 123/79 05/04/25 05:51 Pulse Oximetry 96 05/04/25 05:51 Oxygen Delivery Room Air 05/04/25 05:51 Temperature 97.8 F 05/04/25 05:51 Pulse Rate 65 05/04/25 09:15 Respiratory Rate 16 05/04/25 09:15 Blood Pressure 107/74 05/04/25 09:15 Pulse Oximetry 95 05/04/25 09:15 Oxygen Delivery Room Air 05/04/25 05:51 <Magdaleno Cornell MD - Last Filed: 05/04/25 17:58> Medical Decision Making MDM Narrative Medical decision making narrative: -Course: 64-year-old female with history of chronic pain presenting after ground level fall. X-rays of hips knees and ankles been ordered. She has been given her home dose of [place]. -DDX includes but is not limited to: Knee sprain, muscle strain, bony injury, arthritis, internal derangement <Ronald Bah MD - Last Filed: 05/04/25 06:21> Vital Signs Vital Signs: Vital Signs Temperature 97.8 F 05/04/25 05:51 Pulse Rate 69 05/04/25 05:51 Respiratory Rate 17 05/04/25 05:51 Blood Pressure 123/79 05/04/25 05:51 Pulse Oximetry 96 05/04/25 05:51 Oxygen Delivery Room Air 05/04/25 05:51 Temperature 97.8 F 05/04/25 05:51 Pulse Rate 65 05/04/25 09:15 Respiratory Rate 16 05/04/25 09:15 Blood Pressure 107/74 05/04/25 09:15 Pulse Oximetry 95 05/04/25 09:15 Oxygen Delivery Room Air 05/04/25 05:51 <Ronald Bah MD - Last Filed: 05/04/25 06:21> Vital Signs Temperature 97.8 F 05/04/25 05:51 Pulse Rate 69 05/04/25 05:51 Respiratory Rate 17 05/04/25 05:51 Blood Pressure 123/79 05/04/25 05:51 Pulse Oximetry 96 05/04/25 05:51 Oxygen Delivery Room Air 05/04/25 05:51 Temperature 97.8 F 05/04/25 05:51 Pulse Rate 65 05/04/25 09:15 Respiratory Rate 16 05/04/25 09:15 Blood Pressure 107/74 05/04/25 09:15 Pulse Oximetry 95 05/04/25 09:15 Oxygen Delivery Room Air 05/04/25 05:51 <Magdaleno Cornell MD - Last Filed: 05/04/25 17:58> Imaging Data Radiologist's impression: Impressions Ankle X-Ray 05/04/25 07:21 Impression: 1: No acute fracture. Knee X-Ray 05/04/25 07:26 Impression: 1: No acute fracture. Knee X-Ray 05/04/25 07:28 Impression: 1: No acute fracture. Pelvis X-Ray 05/04/25 07:29 Impression: 1: No acute fracture. Ankle X-Ray 05/04/25 07:31 IMPRESSION: 1: NO ACUTE BONE OR JOINT ABNORMALITY IDENTIFIED. <Magdaleno Cornell MD - Last Filed: 05/04/25 17:58> Discharge Plan Discharge Clinical Impression: Bilateral leg pain, Injury of knee, left, Injury of knee, right <Ronald Bah MD - Last Filed: 05/04/25 06:21> Patient Disposition: Home <Ronald Bah MD - Last Filed: 05/04/25 06:21> Condition: Stable <Ronald Bah MD - Last Filed: 05/04/25 06:21> Instructions: Antibiotic Form, Knee Pain (ED), Fall Prevention (ED) <Ronald Bah MD - Last Filed: 05/04/25 06:21> Additional Instructions: Tylenol and ibuprofen for pain control. Have close follow-up with your primary care physician. <Ronald Bah MD - Last Filed: 05/04/25 06:21> Patient Language: Chinese <Ronald Bah MD - Last Filed: 05/04/25 06:21> Prescriptions: No Action tramadol 100 mg capsule,ER biphase 24 hr 25-75 100 mg PO TID PRN (Reason: pain) Qty: 30 0RF syringe with needle [BD Luer-Douglas Syringe] 3 mL 22 x 1 1/2 syringe See Rx Instructions .ROUTE .COMPLEX Qty: 18 1RF Dose Instruction: USE DIRECTED TO INJECT 1CC IM MONTHLY Rx Instructions: USE DIRECTED TO INJECT 1CC IM EVERY 3 WEEKS fluticasone propionate 50 mcg/actuation spray,suspension See Rx Instructions .ROUTE .COMPLEX Qty: 48 0RF Dose Instruction: SHAKE LIQUID AND USE 1 SPRAY IN EACH NOSTRIL EVERY 12 HOURS Rx Instructions: SHAKE LIQUID AND USE 1 SPRAY IN EACH NOSTRIL EVERY 12 HOURS oxycodone-acetaminophen 5-325 mg tablet 1 tablet PO Q6H PRN (Reason: pain) albuterol sulfate 90 mcg/actuation HFA aerosol inhaler 1 inh inhalation Q4H PRN (Reason: shortness of breath or wheezing) Qty: 8.5 4RF atorvastatin 20 mg tablet 20 mg PO DAILY Qty: 100 2RF aripiprazole [Abilify] 5 mg tablet 5 mg PO QHS Qty: 90 3RF gabapentin 600 mg tablet 600 mg PO BID Qty: 60 4RF azelastine [Astepro Allergy] 205.5 mcg (0.15 %) spray,non-aerosol 2 spray intranasal DAILY Qty: 30 0RF Rx Instructions: administer into each nostril Trintellix 20 mg tablet 20 mg PO DAILY Qty: 30 6RF ergocalciferol (vitamin D2) [Vitamin D2] 1,250 mcg (50,000 unit) capsule 50,000 unit PO WEEKLY Qty: 24 1RF clopidogrel 75 mg tablet 75 mg PO DAILY Qty: 90 1RF cyanocobalamin (vitamin B-12) 1,000 mcg/mL solution 1,000 mcg IM .EVERY 3 WEEKS Qty: 20 3RF famotidine 40 mg tablet See Rx Instructions .ROUTE .COMPLEX Qty: 90 1RF Dose Instruction: TAKE 1 TABLET BY MOUTH EVERY DAY Rx Instructions: TAKE 1 TABLET BY MOUTH EVERY DAY trazodone 100 mg tablet 200 mg PO QHS PRN (Reason: insomnia) Qty: 180 2RF valacyclovir [Valtrex] 1 gram tablet 2,000 mg PO Q12H PRN (Reason: cold sores) Qty: 8 6RF montelukast 10 mg tablet 10 mg PO QHS Qty: 100 3RF levothyroxine [Levoxyl] 175 mcg tablet 175 mcg PO .COMPLEX Qty: 30 4RF Rx Instructions: 175 mcg orally daily EXCEPT 150MCG Wednesday and Wednesday levothyroxine 150 mcg tablet 150 mcg PO .COMPLEX Qty: 30 3RF Rx Instructions: 150 mcg orally; DAILY ON Wednesday and Wednesday ONLY AND 175MCG OTHER DAYS calcium carbonate [Calcium 600] 600 mg calcium (1,500 mg) tablet 600 mg PO BID Qty: 180 0RF buspirone 15 mg tablet 15 mg PO TID PRN (Reason: anxiety) Qty: 90 2RF pantoprazole 40 mg tablet,delayed release (DR/EC) 40 mg PO QAM Qty: 90 1RF <Ronald Bah MD - Last Filed: 05/04/25 06:21> Follow-up/Referrals: Candace Nicole MD [Primary Care Provider] - <Ronald Bah MD - Last Filed: 05/04/25 06:21>
[2025-05-04] MEDS: HYDROcodone/acetaminophen (*CRX) 5-325 MG TABLET 2 TAB PO (06:44)
--- OUTSIDE RECORDS SUMMARY | 2025-05-04 07:21 | XMS_ITS | Clinical Summary ---
Author Organization [facility] Address [address] [place] [id number] Care Team Providers Care Superintendent Drilling And Production Name Role Phone Unavailable Primary Care Provider [...] Comments Blood Pressure 170/118 10/06/2012 4:08 PM DATA INTEGRITY CONSULTANT Pulse 77 10/06/2012 4:08 PM DATA INTEGRITY CONSULTANT Temperature - - Respiratory Rate - - Oxygen Saturation - - Inhaled Oxygen Concentration - - Weight 64.4 kg (142 lb) 10/06/2012 3:44 PM DATA INTEGRITY CONSULTANT Height 160 cm (5' 3) 10/06/2012 3:44 PM DATA INTEGRITY CONSULTANT Body Mass Index 25.15 10/06/2012 3:44 PM DATA INTEGRITY CONSULTANT Plan of Treatment Health Maintenance Due Date [...]
--- OUTSIDE RECORDS SUMMARY | 2025-05-04 07:21 | XMS_ITS | Clinical Summary ---
Author Organization [facility] Address [address] [place] [address] Care Team Providers Care Emg Technician Name Role Phone Candace Nicole MD Primary Care Provider [phone] Source Comments [facility],non-owned Affiliates and Associated Physician Practices is amultiple site organization consisting of ambulatory clinics and hospital sitesin [place], [place], [place] and [place]. This disclosure is being madepursuant to the Care Everywhere program and may not contain all information available regarding this patient. 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 Not on file Not on file Last Filed Vital Signs Vital Sign Reading Time Taken Comments Blood Pressure 110/68 10/15/2016 3:04 PM CUSTOMER RELATIONS ADVISOR Pulse 107 10/15/2016 3:04 PM CUSTOMER RELATIONS ADVISOR Temperature 36.7 C (98.1 F) 10/15/2016 3:04 PM CUSTOMER RELATIONS ADVISOR Respiratory Rate 16 10/15/2016 3:04 PM CUSTOMER RELATIONS ADVISOR Oxygen Saturation 96% 10/15/2016 3:04 PM CUSTOMER RELATIONS ADVISOR Inhaled Oxygen Concentration - - Weight 65.8 kg (145 lb) 10/15/2016 3:04 PM CUSTOMER RELATIONS ADVISOR Height 162.6 cm (5' 4) 10/15/2016 3:04 PM CUSTOMER RELATIONS ADVISOR Body Mass Index 24.89 10/15/2016 3:04 PM CUSTOMER RELATIONS ADVISOR Plan of Treatment Health Maintenance Due Date [...] complete this topic Insurance ANTHEM Care Teams Emg Technician Relationship Specialty Start Date End Date Candace Nicole MD [address] [place] [address] PCP - General Family Medicine 10/15/16
--- OUTSIDE RECORDS SUMMARY | 2025-05-04 07:21 | XMS_ITS | Clinical Summary ---
Author Organization [facility] Address [address] [place] [id number] Care Team Providers Care Emergency Care Tech Name Role Phone Candace Nicole MD Primary Care Provider [phone] Allergies Active Allergy Reactions Criticality Noted Date [...] Active cholecalcifero l (Dialyvite Vitamin D3 Max) 39118 unit tablet Take by mouth 8 Active [...] on file Legal Sex Female 3:25 AM HOGSHEAD PRESS OPERATOR Gender Identity Not on file Sexual Orientation Not on file Obstetrics History Last Filed Vital Signs Vital Sign Reading Time Taken Comments Blood Pressure 106/70 08/20/2022 10:40 AM HOGSHEAD PRESS OPERATOR Pulse 55 08/20/2022 10:40 AM HOGSHEAD PRESS OPERATOR Temperature 37.1 C (98.7 F) 02/23/2020 6:29 PM CDT Respiratory Rate 16 08/20/2022 10:40 AM HOGSHEAD PRESS OPERATOR Oxygen Saturation 97% 08/20/2022 10:40 AM HOGSHEAD PRESS OPERATOR Inhaled Oxygen Concentration - - Weight 72 kg (158 lb 11.7 oz) 08/20/2022 10:40 A M HOGSHEAD PRESS OPERATOR Height 160 cm (5' 3) 08/20/2022 10:40 AM HOGSHEAD PRESS OPERATOR Body Mass Index 28.12 08/20/2022 10:40 AM HOGSHEAD PRESS OPERATOR Plan of Treatment Health Maintenance Due Date [...] Pneumococcal vaccine 65+ Completed 03/26/2022 Insurance AETNA [facility] MDCR HMO REF [facility] MDCR HMO REF Care Teams Emergency Care Tech Relationship Specialty Start Date End Date Candace Nicole MD PCP - General 02/23/20
--- OUTSIDE RECORDS SUMMARY | 2025-05-04 07:21 | XMS_ITS | Referral Summary ---
Author Organization [facility] Address [address] [place] [id number] Care Team Providers Care Parole Agent Name Role Phone Candace Nicole MD Primary Care Provider [phone] Allergies Active Allergy Reactions Criticality Noted Date [...] Active cholecalcifero l (Dialyvite Vitamin D3 Max) 25944 unit tablet Take by mouth 8 Active [...] on file Legal Sex Female 3:25 AM CARE TRANSITIONS NURSE Gender Identity Not on file Sexual Orientation Not on file Last Filed Vital Signs Vital Sign Reading Time Taken Comments Blood Pressure 106/70 08/20/2022 10:40 AM CARE TRANSITIONS NURSE Pulse 55 08/20/2022 10:40 AM CARE TRANSITIONS NURSE Temperature 37.1 C (98.7 F) 02/23/2020 6:29 PM CDT Respiratory Rate 16 08/20/2022 10:40 AM CARE TRANSITIONS NURSE Oxygen Saturation 97% 08/20/2022 10:40 AM CARE TRANSITIONS NURSE Inhaled Oxygen Concentration - - Weight 72 kg (158 lb 11.7 oz) 08/20/2022 10:40 A M CARE TRANSITIONS NURSE Height 160 cm (5' 3) 08/20/2022 10:40 AM CARE TRANSITIONS NURSE Body Mass Index 28.12 08/20/2022 10:40 AM CARE TRANSITIONS NURSE Plan of Treatment Not on file Insurance AETNA [id number] [place] [address] MDCR HMO REF [facility] Address: [address] [address] [place] [address] [facility] Care Teams Parole Agent Relationship Specialty Start Date End Date Candace Nicole MD PCP - General 02/23/20
[2025-05-04 09:15] VITALS: BP 107/74; PULSE 65; RESP 16; O2SAT 95
== END 2025-05-04 09:18 | disposition home or self-care (01) ==
PROVIDERS: Emergency Provider Emergency Medicine; PCP Family Medicine
DX: S89.92XA Unspecified injury of left lower leg, initial encounter (principal); S89.91XA Unspecified injury of right lower leg, initial encounter; M79.605 Pain in left leg; M79.604 Pain in right leg; G89.29 Other chronic pain; E78.5 Hyperlipidemia, unspecified; E03.9 Hypothyroidism, unspecified; F32.A Depression, unspecified; E55.9 Vitamin D deficiency, unspecified; K21.9 Gastro-esophageal reflux disease without esophagitis; Z98.84 Bariatric surgery status; Z98.1 Arthrodesis status; Z86.73 Personal history of transient ischemic attack (TIA), and cerebral infarction without residual deficits; Z90.710 Acquired absence of both cervix and uterus; Z79.899 Other long term (current) drug therapy; Z79.02 Long term (current) use of antithrombotics/antiplatelets; W18.39XA Other fall on same level, initial encounter
CPT/HCPCS: 72170; 73562; 73610; 99284; A9270

== ENCOUNTER 2025-06-26 16:11 | Emergency (ER) | payer OTHER, SELFPAY ==
--- NOTE | ~2025-06-26 | XR_ITS ---
XR tibia fibula LT 2V 06/26/2025 16:58 Indication: Left leg pain Procedure: 2 views left tibia/fibula Comparison: 10/25/2024 Findings: No fracture, subluxation or dislocation. No significant soft tissue abnormality. No foreign bodies. Mild osteoarthritis of the left knee. Impression: 1: No acute bone or joint abnormality. Reviewed, dictated and finalized at location O. Impression: 1: No acute bone or joint abnormality.
--- NOTE | ~2025-06-26 | XR_ITS ---
XR knee LT 3V 06/26/2025 16:58 Indication: Left knee pain Procedure: 3 views left knee Comparison: 05/04/2025 Findings: There is moderate tricompartment osteoarthritis. There is a healed distal femoral diaphyseal fracture. Osteopenia. No acute fracture. No significant soft tissue abnormality. Impression: 1: No acute abnormality of the left knee. Reviewed, dictated and finalized at location O. Impression: 1: No acute abnormality of the left knee.
[2025-06-26 16:21] VITALS: BP 91/59; PULSE 78; RESP 16; TEMP 36.9; O2SAT 98
--- NOTE | 2025-06-26 16:31 | ED.GENADULT ---
HPI - General Adult General Chief complaint: Unspecified <Verna Maradiaga February, HEAD OF STRATEGY - Last Filed: 06/27/25 19:46> Stated complaint: left leg collapsed <Verna Maradiaga February, HEAD OF STRATEGY - Last Filed: 06/27/25 19:46> Time Seen by Provider: 06/26/25 16:31 <Verna Maradiaga February, HEAD OF STRATEGY - Last Filed: 06/27/25 19:46> Focused HPI: Karin Donovan is a 64 y/o female who presents with reports of going into her closet today and her left knee gave out and she fell in the sitting position. She states that she now has pain to the left knee radiating down her leg. Denies hitting her head / No loc Left knee + swelling GENERAL: Wwell-nourished, and in no acute distress. HEAD: Normocephalic, atraumatic. CHEST: Clear to auscultation. ?No respiratory distress. HEART: Regular rate and rhythm.? NEURO: ?Alert and oriented x3. Patient screened in triage and initial orders placed.? ?Additional care and disposition to be based upon?diagnostic testing and treatment. <Verna Maradiaga February, HEAD OF STRATEGY - Last Filed: 06/27/25 19:46> Focused HPI: Karin Donovan is a 64 y/o female who presents with reports of going into her closet today and her left knee gave out and she fell in the sitting position. She states that she now has pain to the left knee radiating down her leg. Denies hitting her head / No loc Left knee + swelling GENERAL: Well-nourished, and in no acute distress. HEAD: Normocephalic, atraumatic. CHEST: Clear to auscultation. ?No respiratory distress. HEART: Regular rate and rhythm.? NEURO: ?Alert and oriented x3. Patient screened in triage and initial orders placed.? ?Additional care and disposition to be based upon?diagnostic testing and treatment. <Karyn Mosqueda PA-C - Last Filed: 06/26/25 21:51> Related Data Home medications: Home Medications ?Medication ?Instructions ?Recorded ?Confirmed ?Last Taken ?Type oxycodone-acetaminophen 5 mg-325 1 tablet PO Q6H PRN pain 08/10/23 04/27/25 Unknown History mg tablet <Verna Maradiaga February, Last Filed: 06/27/25 19:46> Allergies/adverse reactions: Allergies Allergy/AdvReac Type Severity Reaction Status Date / Time latex Allergy Severe Swelling Verified 06/26/25 16:13 of Lip/Tongue/Throat aspirin Allergy Unknown Unknown Verified 06/26/25 16:13 Penicillins Allergy Unknown Unknown Verified 06/26/25 16:13 <Verna Maradiaga February, - Last Filed: 06/27/25 19:46> Review of Systems Review of Systems: All systems reviewed & are unremarkable except as noted in HPI and below <Karyn Mosqueda PA-C - Last Filed: 06/26/25 21:51> [facility] Past Medical History Medical History: Medical History Cobalamin deficiency Vitamin D deficiency Gastroesophageal reflux TIA (transient ischemic attack) Spinal stenosis of lumbar region with radiculopathy Elevated liver enzymes Chronic low back pain Depression HLD (hyperlipidemia) Hypothyroidism <Verna Maradiaga February, Last Filed: 06/27/25 19:46> Surgical History Surgical History: Surgical History History of hip surgery H/O total hysterectomy H/O gastric bypass History of lumbar spinal fusion Hx of laminectomy <Verna Maradiaga February, - Last Filed: 06/27/25 19:46> Family History Family History: Family History Mother Family history of rheumatoid arthritis Cerebrovascular accident Father Family history of liver disease Family history of coronary artery disease Sibling Cerebrovascular accident <Verna Maradiaga February, Last Filed: 06/27/25 19:46> Social History Social History: Social History Smoking status: Never smoker Second hand tobacco smoke exposure: No Alcohol intake: former Alcohol use details: hasn't drank in 4 years Substance use: never Substance use type: does not use Do You Feel Safe in your Home?: Yes Lack of Transportation: No Lack of Food: Sometimes True Current Housing: I Have Housing Concerned About Future Housing: No Difficulty Paying Gas/Electric Bills: YES Difficulty Paying for Meds: No Currently Unemployed: No Education: High School Diploma/GED Difficulty w/ Childcare or Family Care: No Living arrangements: with family Occupation/Education: occupation Gender identity (if verbalized by the patient): Female Sexual Orientation (if Verbalized by the Patient): Straight or Heterosexual Spiritual care concerns: No Agree to blood products: Yes <Verna Jacob, HEAD OF STRATEGY - Last Filed: 06/27/25 19:46> Exam Narrative: GENERAL: Well-appearing, well-nourished, and in no acute distress. HEAD: Normocephalic, atraumatic. EYES: EOMI. CHEST: Clear to auscultation. No respiratory distress. No wheezes rales or rhonchi HEART: Regular rate and rhythm. No murmur heard. Normal peripheral pulses. EXTREMITIES: Normal range of motion. No obvious deformity. Mild swelling about the left knee anteriorly. Normal DP pulse SKIN: Warm, dry, no rash. NEURO: No focal deficits. Alert and oriented x3. PSYCH: Normal mood and affect <Karyn Mosqueda PA-C - Last Filed: 06/26/25 21:51> Course Course Emergency Course: patient updated on her workup and agrees with plan of care <Karyn Mosqueda PA-C - Last Filed: 06/26/25 21:51> Vital Signs Vital signs: Vital Signs Temperature 36.9 C 06/26/25 16:21 Pulse Rate 78 06/26/25 16:21 Respiratory Rate 16 06/26/25 16:21 Blood Pressure 91/59 L 06/26/25 16:21 Pulse Oximetry 98 06/26/25 16:21 Temperature 36.8 C 06/26/25 22:22 Pulse Rate 74 06/26/25 22:22 Respiratory Rate 15 06/26/25 22:22 Blood Pressure 105/63 06/26/25 22:22 Pulse Oximetry 100 06/26/25 22:22 <Verna Jacob, HEAD OF STRATEGY - Last Filed: 06/27/25 19:46> Vital Signs Temperature 36.9 C 06/26/25 16:21 Pulse Rate 78 06/26/25 16:21 Respiratory Rate 16 06/26/25 16:21 Blood Pressure 91/59 L 06/26/25 16:21 Pulse Oximetry 98 06/26/25 16:21 Temperature 36.8 C 06/26/25 22:22 Pulse Rate 74 06/26/25 22:22 Respiratory Rate 15 06/26/25 22:22 Blood Pressure 105/63 06/26/25 22:22 Pulse Oximetry 100 06/26/25 22:22 <Karyn Mosqueda PA-C - Last Filed: 06/26/25 21:51> Procedures Orthopedic Splinting/Casting Injury #1: Splinting/Casting Date: 06/26/25 <Karyn Mosqueda PA-C - Last Filed: 06/26/25 21:51> Side: left <ANUJA Salmon Last Filed: 06/26/25 21:51> Lower Extremity Injury Location: knee <ANUJA Salmon Last Filed: 06/26/25 21:51> Lower Extremity Immobilizer: knee immobilizer <Karyn Mosqueda PA-C - Last Filed: 06/26/25 21:51> Pre-Procedure Neuro Vascular Exam: normal <Karyn Mosqueda PA-C - Last Filed: 06/26/25 21:51> Post-Procedure Neuro Vascular Exam: normal <ANUJA Salmon Last Filed: 06/26/25 21:51> Medical Decision Making MDM Narrative Medical decision making narrative: Patient presents to the emergency department for left knee pain after a fall today. She is neurovascularly intact. Left knee x-ray without acute osseous abnormalities. Tib-fib x-ray without acute osseous abnormalities. Patient placed in knee immobilizer. Reports she has crutches at home. Will be given follow-up with Orthopedics. <Karyn Mosqueda PA-C - Last Filed: 06/26/25 21:51> Differential Diagnosis Differential Diagnosis: knee sprain, contusion <ANUJA Salmon Last Filed: 06/26/25 21:51> Vital Signs Vital Signs: Vital Signs Temperature 36.9 C 06/26/25 16:21 Pulse Rate 78 06/26/25 16:21 Respiratory Rate 16 06/26/25 16:21 Blood Pressure 91/59 L 06/26/25 16:21 Pulse Oximetry 98 06/26/25 16:21 Temperature 36.8 C 06/26/25 22:22 Pulse Rate 74 06/26/25 22:22 Respiratory Rate 15 06/26/25 22:22 Blood Pressure 105/63 06/26/25 22:22 Pulse Oximetry 100 06/26/25 22:22 <Verna Jacob APRN - Last Filed: 06/27/25 19:46> Vital Signs Temperature 36.9 C 06/26/25 16:21 Pulse Rate 78 06/26/25 16:21 Respiratory Rate 16 06/26/25 16:21 Blood Pressure 91/59 L 06/26/25 16:21 Pulse Oximetry 98 06/26/25 16:21 Temperature 36.8 C 06/26/25 22:22 Pulse Rate 74 06/26/25 22:22 Respiratory Rate 15 06/26/25 22:22 Blood Pressure 105/63 06/26/25 22:22 Pulse Oximetry 100 06/26/25 22:22 <Karyn Mosqueda PA-C - Last Filed: 06/26/25 21:51> Imaging Data Radiologist's impression: ITS Impressions Tibia/Fibula X-Ray 06/26/25 16:59 Impression: 1: No acute bone or joint abnormality. Knee X-Ray 06/26/25 17:16 Impression: 1: No acute abnormality of the left knee. <Karyn Mosqueda PA-C - Last Filed: 06/26/25 21:51> Critical Care Time Critical Care Time Critical Care Time: No <Karyn Mosqueda PA-C - Last Filed: 06/26/25 21:51> Discharge Plan Discharge Clinical Impression: Left knee sprain <Verna Jacob APRN - Last Filed: 06/27/25 19:46> Patient Disposition: Home <Verna Jacob APRN - Last Filed: 06/27/25 19:46> Condition: Stable <Verna Jacob APRN - Last Filed: 06/27/25 19:46> Instructions: Knee Sprain (ED) <Verna Jacob HEAD OF STRATEGY - Last Filed: 06/27/25 19:46> Additional Instructions: Return to the ER if you experience fever, redness and swelling of your extremity, numbness or any other symptoms that are concerning to you Wear knee immobilizer and use crutches. No weight on the affected leg. Ice and elevate extremity. Pain medication as needed and directed. Follow up with your orthopedics for further care. <Verna Jacob, RACHEL - Last Filed: 06/27/25 19:46> Patient Language: Khmer <Verna Jacob, HEAD OF STRATEGY - Last Filed: 06/27/25 19:46> Prescriptions: No Action tramadol 100 mg capsule,ER biphase 24 hr 25-75 100 mg PO TID PRN (Reason: pain) Qty: 30 0RF syringe with needle [BD Luer-Douglas Syringe] 3 mL 22 x 1 1/2 syringe See Rx Instructions .ROUTE .COMPLEX Qty: 18 1RF Dose Instruction: USE DIRECTED TO INJECT 1CC IM MONTHLY Rx Instructions: USE DIRECTED TO INJECT 1CC IM EVERY 3 WEEKS fluticasone propionate 50 mcg/actuation spray,suspension See Rx Instructions .ROUTE .COMPLEX Qty: 48 0RF Dose Instruction: SHAKE LIQUID AND USE 1 SPRAY IN EACH NOSTRIL EVERY 12 HOURS Rx Instructions: SHAKE LIQUID AND USE 1 SPRAY IN EACH NOSTRIL EVERY 12 HOURS oxycodone-acetaminophen 5-325 mg tablet 1 tablet PO Q6H PRN (Reason: pain) albuterol sulfate 90 mcg/actuation HFA aerosol inhaler 1 inh inhalation Q4H PRN (Reason: shortness of breath or wheezing) Qty: 8.5 4RF atorvastatin 20 mg tablet 20 mg PO DAILY Qty: 100 2RF aripiprazole [Abilify] 5 mg tablet 5 mg PO QHS Qty: 90 3RF gabapentin 600 mg tablet 600 mg PO BID Qty: 60 4RF azelastine [Astepro Allergy] 205.5 mcg (0.15 %) spray,non-aerosol 2 spray intranasal DAILY Qty: 30 0RF Rx Instructions: administer into each nostril Trintellix 20 mg tablet 20 mg PO DAILY Qty: 30 6RF ergocalciferol (vitamin D2) [Vitamin D2] 1,250 mcg (50,000 unit) capsule 50,000 unit PO WEEKLY Qty: 24 1RF clopidogrel 75 mg tablet 75 mg PO DAILY Qty: 90 1RF cyanocobalamin (vitamin B-12) 1,000 mcg/mL solution 1,000 mcg IM .EVERY 3 WEEKS Qty: 20 3RF famotidine 40 mg tablet See Rx Instructions .ROUTE .COMPLEX Qty: 90 1RF Dose Instruction: TAKE 1 TABLET BY MOUTH EVERY DAY Rx Instructions: TAKE 1 TABLET BY MOUTH EVERY DAY trazodone 100 mg tablet 200 mg PO QHS PRN (Reason: insomnia) Qty: 180 2RF valacyclovir [Valtrex] 1 gram tablet 2,000 mg PO Q12H PRN (Reason: cold sores) Qty: 8 6RF montelukast 10 mg tablet 10 mg PO QHS Qty: 100 3RF levothyroxine [Levoxyl] 175 mcg tablet 175 mcg PO .COMPLEX Qty: 30 4RF Rx Instructions: 175 mcg orally daily EXCEPT 150MCG Wednesday and Wednesday levothyroxine 150 mcg tablet 150 mcg PO .COMPLEX Qty: 30 3RF Rx Instructions: 150 mcg orally; DAILY ON Wednesday and Wednesday ONLY AND 175MCG OTHER DAYS buspirone 15 mg tablet 15 mg PO TID PRN (Reason: anxiety) Qty: 90 2RF pantoprazole 40 mg tablet,delayed release (DR/EC) 40 mg PO QAM Qty: 90 1RF calcium carbonate 600 mg calcium (1,500 mg) tablet See Rx Instructions .ROUTE .COMPLEX Qty: 180 2RF Dose Instruction: TAKE 1 TABLET BY MOUTH TWICE A DAY Rx Instructions: TAKE 1 TABLET BY MOUTH TWICE A DAY <Verna Jacob, HEAD OF STRATEGY - Last Filed: 06/27/25 19:46> Follow-up/Referrals: Fredy Conway MD [Physician, Orthopedics] Candace Nicole MD [Primary Care Provider, Family Practice] <Verna Jacob, HEAD OF STRATEGY - Last Filed: 06/27/25 19:46>
--- OUTSIDE RECORDS SUMMARY | 2025-06-26 21:49 | XMS_ITS | Clinical Summary ---
Author Organization [facility] Address [address] [place] [address] Care Team Providers Care Information Operator Name Role Phone Candace Nicole MD Primary Care Provider [phone] [facility],non-owned Affiliates and Associated Physician Practices is amultiple site organization consisting of ambulatory clinics and hospital sitesin [place], [place], [place] and [place]. This disclosure is being madepursuant to the Care Everywhere program and may not contain all information available regarding this patient. Last updated 18.[facility] Allergies Active Allergy Reactions Criticality Noted Date [...] tablet daily for 4 days. 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 Not on file Not on file Last Filed Vital Signs Vital Sign Reading Time Taken Comments Blood Pressure 110/68 10/15/2016 3:04 PM LOCKER ATTENDANT Pulse 107 10/15/2016 3:04 PM LOCKER ATTENDANT Temperature 36.7 C (98.1 F) 10/15/2016 3:04 PM LOCKER ATTENDANT Respiratory Rate 16 10/15/2016 3:04 PM LOCKER ATTENDANT Oxygen Saturation 96% 10/15/2016 3:04 PM LOCKER ATTENDANT Inhaled Oxygen Concentration - - Weight 65.8 kg (145 lb) 10/15/2016 3:04 PM LOCKER ATTENDANT Height 162.6 cm (5' 4) 10/15/2016 3:04 PM LOCKER ATTENDANT Body Mass Index 24.89 10/15/2016 3:04 PM LOCKER ATTENDANT Plan of Treatment Health Maintenance Due Date [...] 2008 ZOSTER VACCINE (1 of 2) 2008 DEPRESSION SCREENING 10/04/2024 COVID-19 VACCINE ( - 2023-2 5 season) 2025 INFLUENZA VACCINE (#1) 2025 Respiratory Syncytial Virus [...] complete this topic Insurance ANTHEM Care Teams Information Operator Relationship Specialty Start Date End Date Candace Nicole MD [address] [place] [address] PCP - General Family Medicine 10/15/16
--- OUTSIDE RECORDS SUMMARY | 2025-06-26 21:49 | XMS_ITS | Clinical Summary ---
Author Organization [facility] Address [address] [place] [id number] Care Team Providers Care Malt House Loader Name Role Phone Candace Nicole MD Primary Care Provider [phone] Allergies Active Allergy Reactions Criticality Noted Date [...] Active cholecalcifero l (Dialyvite Vitamin D3 Max) 49611 unit tablet Take by mouth 8 Active [...] on file Legal Sex Female 3:25 AM CHILD CARE Gender Identity Not on file Sexual Orientation Not on file Obstetrics History Last Filed Vital Signs Vital Sign Reading Time Taken Comments Blood Pressure 106/70 08/20/2022 10:40 AM CHILD CARE Pulse 55 08/20/2022 10:40 AM CHILD CARE Temperature 37.1 C (98.7 F) 02/23/2020 6:29 PM CDT Respiratory Rate 16 08/20/2022 10:40 AM CHILD CARE Oxygen Saturation 97% 08/20/2022 10:40 AM CHILD CARE Inhaled Oxygen Concentration - - Weight 72 kg (158 lb 11.7 oz) 08/20/2022 10:40 A M CHILD CARE Height 160 cm (5' 3) 08/20/2022 10:40 AM CHILD CARE Body Mass Index 28.12 08/20/2022 10:40 AM CHILD CARE Plan of Treatment Health Maintenance Due Date Last Done Comments Breast Cancer Screening-Mammogram 1958 Colon Cancer Screening-Colonoscopy 1960 Depression Screening 1958 Fall Risk Assessment 1958 Hepatitis C Screening 1958 Osteoporosis Screening-Bone Density Scan 1958 DTaP/Tdap/Td Vaccine (1 - Tdap) 1969 Hepatitis B Screening 1976 Zoster Vaccine (1 of 2) 2008 Well Visit 65+ 2023 Covid-19 Vaccine ( season) 2025 07/23/2021, 01/06/2021, 12/16/2020 Influenza Vaccine (#1) 2025 07/23/2021 Pneumococcal vaccine 65+ Completed 03/26/2022 Insurance AETNA [facility] MDCR HMO REF [facility] Address: [id number] [place] [address] [facility] MDCR HMO REF [facility] Address: [facility] [address] [place] [address] Care Teams Malt House Loader Relationship Specialty Start Date End Date Candace Nicole MD PCP - General 02/23/20
[2025-06-26 21:55] VITALS: O2SAT 98
[2025-06-26 22:00] VITALS: BP 105/63; PULSE 74; RESP 15; TEMP 36.8; O2SAT 100
[2025-06-26 22:22] VITALS: BP 105/63; PULSE 74; RESP 15; TEMP 36.8; O2SAT 100
== END 2025-06-26 22:24 | disposition home or self-care (01) ==
PROVIDERS: Emergency Provider Physician Assistant; PCP Family Medicine
DX: S83.92XA Sprain of unspecified site of left knee, initial encounter (principal); E55.9 Vitamin D deficiency, unspecified; E53.8 Deficiency of other specified B group vitamins; E78.5 Hyperlipidemia, unspecified; E03.9 Hypothyroidism, unspecified; K21.9 Gastro-esophageal reflux disease without esophagitis; F32.A Depression, unspecified; Z86.73 Personal history of transient ischemic attack (TIA), and cerebral infarction without residual deficits; Z98.84 Bariatric surgery status; Z90.710 Acquired absence of both cervix and uterus; Z98.1 Arthrodesis status; Z79.02 Long term (current) use of antithrombotics/antiplatelets; Z79.899 Other long term (current) drug therapy; W18.39XA Other fall on same level, initial encounter
CPT/HCPCS: 73562; 73590; 99284